=== PATIENT | male | born 1990 | race Two or more races ===

== ENCOUNTER 2019-01-26 10:20 | Outpatient (CLI) | payer SELFPAY | END 2019-01-26 23:59 | disposition home or self-care (01) | LOC: WOU 10:20 | PROVIDERS: ATTEND Podiatrist Foot & Ankle Surgery | DX: S92.351A Displaced fracture of fifth metatarsal bone, right foot, initial encounter for closed fracture (principal); X58.XXXA Exposure to other specified factors, initial encounter; Y93.9 Activity, unspecified; Y92.89 Other specified places as the place of occurrence of the external cause; S90.121A Contusion of right lesser toe(s) without damage to nail, initial encounter; R60.0 Localized edema; Z87.891 Personal history of nicotine dependence | CPT/HCPCS: G0463 ==